=== PATIENT | male | born 1960 | race Caucasian/White ===

== ENCOUNTER 2019-09-02 10:42 | Emergency (ER) | payer OTHER, SELFPAY ==
--- NOTE | ~2019-09-02 | XR_ITS ---
EXAMINATION: XR toe 5th RT min 2V INDICATION: Right fifth toe pain, initial encounter TECHNIQUE: Four views of the right fifth toe are obtained. COMPARISON: None available FINDINGS: There is an acute, traumatic, closed, oblique shaft fracture of the fifth proximal phalanx. The fracture does not appear to extend to the articular surfaces. Soft tissue swelling surrounds the fracture. No additional acute osseous findings are evident. IMPRESSION: 1. Acute shaft fracture of the fifth proximal phalanx. Reviewed, dictated and finalized at location A.
[2019-09-02 11:25] VITALS: BP 128/82; PULSE 73; RESP 20; TEMP 37.2; O2SAT 98
--- NOTE | 2019-09-02 12:03 | ED.LOWEXIN ---
HPI - Extremity Injury (Lower) General Chief Complaint: Extremity Injury, Lower <RALPH Cabezas Last Filed: 09/02/19 12:52> Stated Complaint: broken toe <RALPH Cabezas Last Filed: 09/02/19 12:52> Time Seen by Provider: 09/02/19 11:07 <RALPH Cabezas Last Filed: 09/02/19 12:52> Source: patient <RALPH Cabezas Last Filed: 09/02/19 12:52> Mode of arrival: ambulatory <RALPH Cabezas Last Filed: 09/02/19 12:52> Limitations: no limitations <RALPH Cabezas Last Filed: 09/02/19 12:52> History of Present Illness HPI Narrative: This is a 59-year-old male that presents the emergency department for right fifth toe injury sustained just prior to arrival. Reports he got the toe caught on a door jam. Reports since he has had pain and decreased range of motion in the toe. Denies numbness. <RALPH Cabezas Last Filed: 09/02/19 12:52> Related Data Home Medications: Home Medications Medication Instructions Recorded Confirmed albuterol sulfate [Ventolin HFA] INHALATION 09/02/19 hydrocodone-acetaminophen tablet 09/02/19 ipratropium-albuterol ml INHALATION 09/02/19 metoprolol succinate PO 09/02/19 <RALPH Cabezas Last Filed: 09/02/19 12:52> Allergies/Adverse Reactions: Allergies Allergy/AdvReac Type Severity Reaction Status Date / Time Penicillins Allergy Mild Anaphylaxis Verified 09/02/19 11:33 venom-honey bee Allergy Unknown Anaphylactic Verified 09/02/19 11:33 Shock <RALPH Cabezas Last Filed: 09/02/19 12:52> Review of Systems Review of Systems: Narrative: CONSTITUTIONAL: Denies fever MUSCULOSKELETAL: Reports joint pain, and myalgia. NEUROLOGIC: Denies numbness <RALPH Cabezas Last Filed: 09/02/19 12:52> All systems reviewed & are unremarkable except as noted in HPI and below <Sisi Hendrickson PA-C - Last Filed: 09/02/19 12:52> PMFSH Past Medical History Medical History: Medical History (Updated 09/02/19 @ 12:51 by Sisi Hendrickson PA-C) History of COPD History of hypertension <Sisi Hendrickson PA-C - Last Filed: 09/02/19 12:52> Exam Narrative: Exam Narrative: GENERAL: Well-appearing, well-nourished, and in no acute distress. HEAD: Normocephalic, atraumatic. EYES: EOMI. EXTREMITIES: No edema. Normal DP pulses. Normal sensation. Right 5th toe tender to palpation with decreased ROM SKIN: Warm, dry, no rash. NEURO: No focal deficits. Alert and oriented x3. PSYCH: Normal mood and affect <Sisi Hendrickson PA-C - Last Filed: 09/02/19 12:52> Course Vital Signs Vital signs: Vital Signs Temperature 99.0 F 09/02/19 11:25 Pulse Rate 73 09/02/19 11:25 Respiratory Rate 20 09/02/19 11:25 Blood Pressure 128/82 09/02/19 11:25 Pulse Oximetry 98 09/02/19 11:25 Temperature 99.0 F 09/02/19 11:25 Pulse Rate 64 09/02/19 13:55 Respiratory Rate 17 09/02/19 13:55 Blood Pressure 152/79 H 09/02/19 13:55 Pulse Oximetry 99 09/02/19 13:55 <Sisi Hendrickson PA-C - Last Filed: 09/02/19 12:52> Vital Signs Temperature 99.0 F 09/02/19 11:25 Pulse Rate 73 09/02/19 11:25 Respiratory Rate 20 09/02/19 11:25 Blood Pressure 128/82 09/02/19 11:25 Pulse Oximetry 98 09/02/19 11:25 Temperature 99.0 F 09/02/19 11:25 Pulse Rate 64 09/02/19 13:55 Respiratory Rate 17 09/02/19 13:55 Blood Pressure 152/79 H 09/02/19 13:55 Pulse Oximetry 99 09/02/19 13:55 <Elisabet Rucker MD - Last Filed: 09/02/19 16:33> MDM - Extremity Injury (Lower) MDM Narrative Medical decision making narrative: Patient presents the emergency department for right fifth toe injury sustained just prior to arrival. Right fifth toe x-ray shows an acute shaft fracture of the fifth proximal phalanx. Patient konrad taped and given postop shoe. Instructed on care of toe fracture. Is to follow-up with primary care doctor. Was given
[2019-09-02 13:55] VITALS: BP 152/79; PULSE 64; RESP 17; O2SAT 99
== END 2019-09-02 13:57 | disposition home or self-care (01) ==
PROVIDERS: Emergency Provider General Practice; PCP Physician Assistant
DX: S92.511A Displaced fracture of proximal phalanx of right lesser toe(s), initial encounter for closed fracture (principal); J44.9 Chronic obstructive pulmonary disease, unspecified; I10 Essential (primary) hypertension; W22.8XXA Striking against or struck by other objects, initial encounter
CPT/HCPCS: 73660; 99284; A9270

== ENCOUNTER 2020-01-16 12:36 | Outpatient (CLI) | payer OTHER, SELFPAY ==
[2020-01-16 13:57] LABS: Alanine Aminotransferase 61 U/L (4-50); Albumin Level 3.7 g/dL (3.5-5.1); Alkaline Phosphatase 74 U/L (38-126); Anion Gap 3 mmol/L (8-16); Aspartate Amino Transferase 46 U/L (17-59); Bilirubin,Total 0.3 mg/dL (0.2-1.3); Blood Urea Nitrogen 11 mg/dL (9-20); Calcium 8.9 mg/dL (8.4-10.2); Carbon Dioxide 31 mmol/L (22-30); Chloride 108 mmol/L (98-107); Cholesterol 156 mg/dL (0-200); Estimated Glomerular Filt Rate > 60; Glucose 110 mg/dL (75-110); HDL Direct 28 mg/dL; Potassium 4.5 mmol/L (3.4-5.0); Sodium 142 mmol/L (137-145); Triglycerides 119 mg/dL (<150)
[2020-01-16 14:08] LABS: LDL Cholesterol Direct 112 mg/dL
== END 2020-01-16 12:37 | disposition home or self-care (01) ==
PROVIDERS: PCP Physician Assistant; Visit Provider Physician Assistant
DX: Z13.220 Encounter for screening for lipoid disorders (principal); I10 Essential (primary) hypertension
CPT/HCPCS: 36415; 80053; 80061

== ENCOUNTER 2020-03-07 07:45 | Outpatient (CLI) | payer OTHER, SELFPAY ==
[2020-03-07 08:18] LABS: Basophils Absolute Auto 0.1 K/mm3 (0.0-0.1); Basophils Percent Auto 0.9 % (0.2-1.2); Eosinophils Absolute Auto 0.2 K/mm3 (0-0.3); Eosinophils Percent Auto 2.3 % (0-4.4); Hematocrit 45.2 % (42.0-52.0); Hemoglobin 15.5 g/dL (14.0-18.0); Immature Granulocyte Absolute 0.05 K/mm3 (0.00-0.031); Immature Granulocyte Percent A 0.8 % (0-0.5); Lymphocytes Absolute Auto 1.95 K/mm3 (0.9-3.2); Lymphocytes Percent Auto 29.9 % (18.3-44.2); Mean Corpuscular HGB Conc 34.3 g/dl (32-36); Mean Corpuscular Hemoglobin 32.7 pg (26-34); Mean Corpuscular Volume 95.4 fl (80-100); Mean Platelet Volume 9.8 fl (7.4-10.4); Monocytes Absolute Auto 0.5 K/mm3 (0.1-0.6); Monocytes Percent Auto 7.8 % (2.6-8.5); Neutrophils Absolute Auto 3.8 K/mm3 (1.3-6.7); Neutrophils Percent Auto 58.3 % (45.5-73.1); Platelet Count Result 195 k/mm3 (150-375); Red Blood Count 4.74 M/mm3 (4.6-6.20); Red Cell Distribution Width 12.3 % (11.5-14.5); White Blood Count 6.5 K/mm3 (4.5-10.0)
[2020-03-07 08:28] LABS: Alanine Aminotransferase 13 U/L (4-50); Albumin Level 3.9 g/dL (3.5-5.1); Alkaline Phosphatase 52 U/L (38-126); Anion Gap 2 mmol/L (8-16); Aspartate Amino Transferase 21 U/L (17-59); Bilirubin,Total 0.6 mg/dL (0.2-1.3); Blood Urea Nitrogen 11 mg/dL (9-20); Calcium 8.8 mg/dL (8.4-10.2); Carbon Dioxide 31 mmol/L (22-30); Chloride 108 mmol/L (98-107); Estimated Glomerular Filt Rate > 60; Glucose 104 mg/dL (75-110); Potassium 4.1 mmol/L (3.4-5.0); Sodium 141 mmol/L (137-145)
[2020-03-09 18:11] LABS: Hepatitis C RNA, Quant PCR <15 IU/mL
== END 2020-03-07 07:46 | disposition home or self-care (01) ==
PROVIDERS: Family Provider Hospitalist; PCP Physician Assistant
DX: B18.2 Chronic viral hepatitis C (principal)
CPT/HCPCS: 36415; 80053; 85025; 87522

== ENCOUNTER 2020-04-05 10:27 | Outpatient (RCR) | payer OTHER, SELFPAY ==
[2020-04-05 10:48] LABS: Basophils Absolute Auto 0.1 K/mm3 (0.0-0.1); Basophils Percent Auto 0.8 % (0.2-1.2); Eosinophils Absolute Auto 0.2 K/mm3 (0-0.3); Eosinophils Percent Auto 2.7 % (0-4.4); Hematocrit 44.3 % (42.0-52.0); Hemoglobin 15.4 g/dL (14.0-18.0); Immature Granulocyte Absolute 0.01 K/mm3 (0.00-0.031); Immature Granulocyte Percent A 0.2 % (0-0.5); Lymphocytes Percent Auto 35.6 % (18.3-44.2); Mean Corpuscular HGB Conc 34.8 g/dl (32-36); Mean Corpuscular Hemoglobin 32.8 pg (26-34); Mean Corpuscular Volume 94.3 fl (80-100); Mean Platelet Volume 9.6 fl (7.4-10.4); Monocytes Absolute Auto 0.6 K/mm3 (0.1-0.6); Monocytes Percent Auto 9.3 % (2.6-8.5); Neutrophils Percent Auto 51.4 % (45.5-73.1); Platelet Count Result 196 k/mm3 (150-375); Red Cell Distribution Width 11.9 % (11.5-14.5); White Blood Count 5.9 K/mm3 (4.5-10.0)
[2020-04-05 10:58] LABS: Alanine Aminotransferase 12 U/L (4-50); Albumin Level 3.9 g/dL (3.5-5.1); Alkaline Phosphatase 48 U/L (38-126); Anion Gap 2 mmol/L (8-16); Aspartate Amino Transferase 20 U/L (17-59); Bilirubin,Total 0.5 mg/dL (0.2-1.3); Blood Urea Nitrogen 11 mg/dL (9-20); Calcium 9.1 mg/dL (8.4-10.2); Carbon Dioxide 32 mmol/L (22-30); Chloride 107 mmol/L (98-107); Estimated Glomerular Filt Rate > 60; Glucose 92 mg/dL (75-110); Potassium 4.1 mmol/L (3.4-5.0); Sodium 141 mmol/L (137-145)
== END 2020-07-04 23:59 | disposition home or self-care (01) ==
LOC: ANHLAB 10:27
PROVIDERS: PCP Physician Assistant
DX: B18.2 Chronic viral hepatitis C (principal)
CPT/HCPCS: 36415; 80053; 85025; 87522

== ENCOUNTER 2021-06-19 08:44 | Outpatient (CLI) | payer OTHER, SELFPAY ==
--- NOTE | ~2021-06-19 | CT_ITS ---
EXAMINATION: CT abdomen w con INDICATION: Right lower quadrant abdominal swelling and mass TECHNIQUE: Computed tomographic images of the abdomen were obtained after the administration of 100 c c of Omnipaque 300 intravenous contrast. The dose-length product (DLP) was 345.10 mGy-cm. Automated e xposure control and iterative reconstruction technique were employed. COMPARISON: 07/29/2017 FINDINGS: Minimal dependent atelectasis is present in the lung bases. The heart size is normal. There appears to be mild surface nodularity of the liver. The spleen, pancreas, gallbladder, and adrenal g lands are normal. The kidneys are unremarkable. There are no pathologically enlarged abdominal lymph nodes. Calcified atherosclerosis is noted. The appendix is normal. A moderate volume of colonic stool is present. There is no free intraperitoneal gas or evidence of bowel obstruction. IMPRESSION: 1. No CT correlate for the patient's symptoms. 2. Mild nodularity of the liver surface, consistent with cirrhosis. Reviewed, dictated and finalized at location B.
[2021-06-19 09:12] LABS: Estimated Glomerular Filt Rate > 60
== END 2021-06-19 08:45 | disposition home or self-care (01) ==
LOC: ANHIMG 08:46
PROVIDERS: PCP Physician Assistant; Visit Provider Physician Assistant
DX: R19.03 Right lower quadrant abdominal swelling, mass and lump (principal); R93.2 Abnormal findings on diagnostic imaging of liver and biliary tract
CPT/HCPCS: 74160; Q9967

== ENCOUNTER 2021-08-31 00:35 | Day surgery (SDC) | payer OTHER, SELFPAY ==
[2021-08-28 11:41] VITALS: BMI 27.2
--- NOTE | 2021-08-28 11:48 | PC.NURSE ---
Report to the Outpatient Waiting Room, entrance under the green pavilion located off [facility], at time 0700 on date 08/31/21. OR Time: 0900. - You and your visitor will be asked a series of questions to screen for COVID 19 for your protection. - Only one visitor is allowed at this time. - The patient visitor is requested to leave or wait in car when not with patient. - A mask is required within the hospital. Patients may have clear liquids (water, carbonated beverages, clear teas, apple juice) until 3 hours prior to surgery with a maximum of 20 ounces. - No food from midnight until time of surgery Take the following medications with a SIP of water the morning of surgery: INHALERS, METOPROLOL, PAIN PILL (IF NEEDED) Medications to discontinue per physician: N/A Date to take last dose: N/A Please no make-up, nail tajik, hairspray, perfume, deodorant, or body powder the day of surgery. No jewelry (including any body piercings) or valuables the day of surgery, leave them at home. Please take a shower or bath the night before, or the morning of, surgery with an antibacterial soap. Wear comfortable, loose fitting clothing. - Jewelry must be removed prior to entering the operating room. Rings and piercings that are not removed may be cut off. - The hospital will not accept responsibility for valuables. - Please leave all valuables, including medications, at home the day of surgery. If you are going home after surgery, a licensed logging truck driver must drive you home. - NO public transportation without another adult. - We recommend that an adult stay with you for 24 hours following discharge. - We also recommend that you do not drive, make important decision, drink alcoholic beverages, or take any drugs that were not prescribed by your health care provider for at least 24 hours after your discharge time. Follow any additional instructions given to you from your surgeon. If you or anyone in your household have experienced Covid symptoms in the past week, please notify your surgeon or the nurse liaison at the phone number below for possible testing. Telephone instructions given to PT - ARETHA COTTON and asked if any additional questions and then verbalized understanding. Patient advised to call surgeon office or pre surgery nurse liaison [phone] if any additional questions.
[2021-08-31 07:08] VITALS: BP 137/70; PULSE 57; RESP 16; TEMP 36.5; O2SAT 100
--- NOTE | 2021-08-31 07:52 | WPDANESEPPF ---
Anes - Initial Pre Proc Eval Procedure: Operation Date: 08/31/21 09:00 Proposed Procedures p Excision Abdominal Wall Mass - Warren Joe DO Date/Time: 08/31/21 07:52 Surgeon: Warren Joe DO Pre Op Diagnosis: 2 cm abdominal wall mass Patient Data Age: 61 Gender: M Height: 1.71 m Weight: 80 kg Allergies Allergy/AdvReac Type Severity Reaction Status Date / Time Penicillins Allergy Severe Anaphylaxis Verified 08/31/21 07:37 venom-honey bee Allergy Severe Anaphylactic Verified 08/31/21 07:37 Shock Home Medications Medication Instructions Recorded Confirmed Type albuterol sulfate 90 mcg/actuation 1 inh inhalation DAILY PRN 09/02/19 08/31/21 History aerosol inhaler (Ventolin HFA) Bronchospasm hydrocodone 10 mg-acetaminophen 1 tablet PO Q6H PRN Pain 09/02/19 08/31/21 History 325 mg tablet ipratropium 0.5 mg-albuterol 3 mg 3 ml inhalation DAILY 09/02/19 08/31/21 History (2.5 mg base)/3 mL nebulization soln metoprolol succinate 100 mg 100 mg PO DAILY 09/02/19 08/31/21 History tablet,extended release 24 hr Patient hx anesthesia problems: none Family hx anesthesia problems: none Results Review: All pre-operative results and documents have been reviewed as part of the pre-operative evaluation. [facility] Past Medical History Medical History Chronic pain syndrome Cirrhosis History of COPD History of hypertension Social History Social History Smoking packs per day: 2 Smoking cigarettes per day: 40.0 Years smoked: 40 Smoking pack-years: 80.00 Smoking status: Current every day smoker Tobacco type: cigarettes Alcohol intake: never Substance use: never Substance use type: does not use Living arrangements: with family Spiritual care concerns: No Anes - Eval Final PreProcedure Day of Procedure 08/31/21 07:52 Patient weight: overweight Heart: regular rate and rhythm Lungs: decreased breath sounds Airway: Mallampati scale class II Neurological: other (alert) Last oral intake: >/= 8 hours ASA classification: III Emergent: no Anesthetic plan: proceed Anesthesia type and monitoring: general GIVS Results Review: All pre-operative results and documents have been reviewed as part of the pre-operative evaluation. Informed Consent: The patient's anesthetic plan and its attendant risks and benefits were discussed with the patient/family/POA. Questions were solicited and answers provided to the satisfaction of the patient/family/POA.
[2021-08-31] MEDS: LACTATED RINGERS 1,000 ML 30 ML IV CONT (07:53)
[2021-08-31 08:14] LABS: Prothrombin Time 13.1 Seconds (11.1-14.7)
--- NOTE | 2021-08-31 08:59 | PM.IMHP ---
H&P: HPI History of Present Illness Date/Time: 08/31/21 08:59 Chief Complaint: Abdominal wall mass Narrative: 61 yo man presents for excision of abdominal wall mass. He reports no changes since last seen in office. Review of Systems Review of Systems: All systems reviewed & are unremarkable except as noted in HPI and below Constitutional: Constitutional: Denies chills, Denies fever(s), Denies headache(s) and Denies weight loss Eyes: Eyes: Denies change in vision ENT: Denies dizziness, Denies headache(s), Denies neck mass and Denies throat swelling Cardiovascular: Cardiovascular: Denies chest pain, Denies lightheadedness and Denies dyspnea Respiratory: Respiratory: Denies cough, Denies dyspnea and Denies wheezing Gastrointestinal: Gastrointestinal: Denies abdominal pain, Denies change in bowel habits, Denies nausea and Denies vomiting Genitourinary: Genitourinary: Denies hematuria and Denies dysuria Musculoskeletal: Musculoskeletal: Reports as per HPI Integumentary/Breasts: Skin/Breast: Reports as per HPI Neurologic: Denies dizziness and Denies headache(s) Allergic/Immunologic: Allergic/Immunologic: Denies throat swelling and Denies wheezing [facility] Past Medical History Medical History Chronic pain syndrome Cirrhosis History of COPD History of hypertension Social History Social History Smoking packs per day: 2 Smoking cigarettes per day: 40.0 Years smoked: 40 Smoking pack-years: 80.00 Smoking status: Current every day smoker Tobacco type: cigarettes Alcohol intake: never Substance use: never Substance use type: does not use Living arrangements: with family Spiritual care concerns: No Meds Home Medications and Allergies Home Medications Medication Instructions Recorded Confirmed Type albuterol sulfate 90 mcg/actuation 1 inh inhalation DAILY PRN 09/02/19 08/31/21 History aerosol inhaler (Ventolin HFA) Bronchospasm hydrocodone 10 mg-acetaminophen 1 tablet PO Q6H PRN Pain 09/02/19 08/31/21 History 325 mg tablet ipratropium 0.5 mg-albuterol 3 mg 3 ml inhalation DAILY 09/02/19 08/31/21 History (2.5 mg base)/3 mL nebulization soln metoprolol succinate 100 mg 100 mg PO DAILY 09/02/19 08/31/21 History tablet,extended release 24 hr Allergies Allergy/AdvReac Type Severity Reaction Status Date / Time Penicillins Allergy Severe Anaphylaxis Verified 08/31/21 07:37 venom-honey bee Allergy Severe Anaphylactic Verified 08/31/21 07:37 Shock Vital Signs Vital Signs - 24 hr 08/31/21 07:08 Temperature 36.5 C Pulse Rate 57 L Respiratory Rate 16 Blood Pressure 137/70 Pulse Oximetry 100 Oxygen Delivery Room Air Exam Const: General: no acute distress and alert Orientation/consciousness: patient oriented x3 HENMT: Head: normocephalic and atraumatic Ears: hearing grossly normal bilaterally General nose exam: Normal nares present Mouth: Yes Normal oral and palatal mucosa present Eyes: Periorbital: periorbital findings normal Sclera: sclerae normal EOM: EOMs intact bilaterally Neck: Neck: normal visual inspection, no lymphadenopathy and trachea midline Chest: Chest palpation & inspection: normal inspection of the chest Resp: Effort & Inspection: normal respiratory effort Auscultation: clear to auscultation bilaterally Cardio: Jugular venous distension: no JVD Rate: regular rate Rhythm: regular rhythm Heart sounds: S1 normal heart sound present and S2 normal heart sound present Peripheral pulses: Peripheral pulses 2+ throughout GI: Inspection: normal to inspection GI Palp: Yes Soft to palpation, No Tenderness to palpation present (GI), No Guarding due to palpation present (GI) and No Rebound tenderness present Percussion: Yes normal to percussion Auscultation: normal bowel sounds Other: 2 cm abdominal wall mass just to the
--- NOTE | 2021-08-31 09:02 | WPDHPUPDATE1 ---
History and Physical Update Update Date/Time: 08/31/21 09:02 History and Physical has been reviewed, including an updated exam of the patient. There are NO changes in the patient's condition. Risks, benefits, and alternatives have been discussed and questions answered. Patient agrees to proceed with procedure.
[2021-08-31] MEDS: ceFAZolin 2 GM/D5W 50 ML 2 GM/50 ML BAG IVPB (09:09)
[2021-08-31] MEDS: LIDO 1%/EPINEPHRINE 1:100,000 10 ML VIAL 30 ML INFILTRATE (09:25)
--- NOTE | 2021-08-31 09:36 | W.PM.PROC2 ---
Procedure Note - Detailed Date of Procedure 08/31/21 Pre-op Diagnosis 2 cm abdominal wall mass Post-op Diagnosis Same Procedure Performed 1. Excision of 2 cm abdominal wall mass 2. Layered closure Surgeon Warren Joe, DO Anesthesia MAC and Local (1% lidocaine with epinephrine) Indications This is a 61-year-old man who presented with an abdominal wall mass that he had noticed over the last several months. It started out as very small size but has increased in size gradually. He had a CT of his abdomen performed which showed no evidence of a mass within this region. He had a 2 cm firm palpable mass within the subcutaneous region just to the right of his umbilicus on exam. Discussions were made with the patient about treatment options and decision was made to proceed with excision the 2 cm abdominal mass. Findings Excision of 2 cm abdominal wall mass was performed. The patient was found have a firm 2 cm mass within the subcutaneous space just to the right of his umbilicus. This appeared to be fibrous tissue but could also be possible lymph node. The mass was completely excised intact and was sent to the lab for pathology. A layered closure was performed using 3-0 Vicryl simple interrupted sutures in Latonia's fascia followed by 4-0 Monocryl running subcuticular suture. Description of Procedure Procedure as well as risks, benefits, and alternatives were discussed with the patient. Written consent was obtained and placed in chart prior to procedure. Patient was brought back to surgical suite. He was placed supine on operating table. Time-out was done to confirm patient and procedure. IV sedation was then administered by the anesthesia department. His abdominal region was prepped and draped in sterile fashion using chlorhexidine prep. 1% lidocaine with epinephrine was infiltrated locally around the mass. A 2 cm transverse incision was made directly over the mass using a 15 blade scalpel. Electrocautery was used for hemostasis and for dissection around the mass. The subcutaneous attachments were carefully dissected free using electrocautery and the mass was completely excised and sent to the lab for pathology. The wound bed was then inspected. Hemostasis appeared adequate. No other masses or abnormalities were noted. Latonia's fascia was reapproximated using 3-0 Vicryl simple interrupted sutures. The skin was then approximated using 4-0 Monocryl running subcuticular suture. Exofin glue was then applied on top. The patient was then awakened from anesthesia and transferred to recovery. Estimated Blood Loss 5 Pathology Yes (2 cm abdominal mass) Complications No immediate complications Condition Stable Disposition Same day [facility] Billing Surgery - Charge Forward: Surgery Billing
[2021-08-31 09:41] VITALS: BP 132/81; PULSE 69; RESP 14; O2SAT 96
[2021-08-31 10:10] VITALS: BP 157/83; PULSE 66; RESP 14; O2SAT 94
== END 2021-08-31 10:36 | disposition home or self-care (01) ==
PROVIDERS: PCP Physician Assistant; Visit Provider Surgery
PROC: (CPT 22902; principal; 2021-08-31 09:00)
DX: M79.89 Other specified soft tissue disorders (principal); G89.4 Chronic pain syndrome; I10 Essential (primary) hypertension; J44.9 Chronic obstructive pulmonary disease, unspecified; F17.210 Nicotine dependence, cigarettes, uncomplicated; Z79.51 Long term (current) use of inhaled steroids; Z79.891 Long term (current) use of opiate analgesic
CPT/HCPCS: 22902; 36415; 85610; 88304; A9270; J0690; J2250; J2704; J3010; J7120

== ENCOUNTER 2022-01-18 07:21 | Outpatient (CLI) | payer OTHER, MEDICAID, SELFPAY ==
[2022-01-18 08:54] LABS: Potassium 4.1 mmol/L (3.4-5.0)
[2022-01-18 09:02] LABS: Alanine Aminotransferase 11 U/L (6-50); Albumin Level 4.2 g/dL (3.5-5.1); Alkaline Phosphatase 53 U/L (38-126); Anion Gap 4 mmol/L (8-16); Aspartate Amino Transferase 18 U/L (17-59); Bilirubin,Total 0.5 mg/dL (0.2-1.3); Blood Urea Nitrogen 14 mg/dL (9-20); Calcium 8.4 mg/dL (8.4-10.2); Carbon Dioxide 30 mmol/L (22-30); Chloride 103 mmol/L (98-107); Cholesterol 165 mg/dL (0-200); Estimated Glomerular Filt Rate > 60; Glucose 108 mg/dL (65-110); HDL Direct 31 mg/dL; Sodium 137 mmol/L (137-145); Triglycerides 129 mg/dL (<150)
[2022-01-18 09:05] LABS: LDL Cholesterol Direct 105 mg/dL
[2022-01-21 21:34] LABS: PSA, Free 0.18 ng/mL; PSA, Total 0.4 ng/mL (<=4.0)
== END 2022-01-18 07:22 | disposition home or self-care (01) ==
PROVIDERS: PCP Physician Assistant; Visit Provider Physician Assistant
DX: I25.2 Old myocardial infarction (principal); I10 Essential (primary) hypertension; Z12.5 Encounter for screening for malignant neoplasm of prostate
CPT/HCPCS: 36415; 80053; 80061; 84153; 84154

== ENCOUNTER 2022-12-16 13:32 | Emergency (ER) | payer OTHER, SELFPAY ==
[2022-12-16 14:05] VITALS: BP 149/86; PULSE 89; RESP 18; TEMP 37.3; O2SAT 96
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
== END 2022-12-16 14:52 | disposition home or self-care (01) ==
PROVIDERS: Emergency Provider Registered Nurse; PCP Family Medicine
DX: S01.25XA Open bite of nose, initial encounter (principal); S61.251A Open bite of left index finger without damage to nail, initial encounter; J44.9 Chronic obstructive pulmonary disease, unspecified; I25.2 Old myocardial infarction; I10 Essential (primary) hypertension; F17.210 Nicotine dependence, cigarettes, uncomplicated; Z86.73 Personal history of transient ischemic attack (TIA), and cerebral infarction without residual deficits; W54.0XXA Bitten by dog, initial encounter
CPT/HCPCS: 99213; G0463

== ENCOUNTER 2023-02-10 10:59 | Outpatient (CLI) | payer OTHER, SELFPAY ==
[2023-02-10 11:30] LABS: Alanine Aminotransferase 16 U/L (6-50); Albumin Level 4.2 g/dL (3.5-5.1); Alkaline Phosphatase 78 U/L (38-126); Anion Gap 8 mmol/L (8-16); Aspartate Amino Transferase 21 U/L (17-59); Bilirubin,Total 0.5 mg/dL (0.2-1.3); Blood Urea Nitrogen 14 mg/dL (9-20); Calcium 9.4 mg/dL (8.4-10.2); Carbon Dioxide 29 mmol/L (22-30); Chloride 104 mmol/L (98-107); Cholesterol 109 mg/dL (0-200); Estimated Glomerular Filt Rate > 60; Glucose 134 mg/dL (65-110); HDL Direct 32 mg/dL; Potassium 4.6 mmol/L (3.4-5.0); Sodium 141 mmol/L (137-145); Triglycerides 82 mg/dL (<150)
[2023-02-10 11:42] LABS: LDL Cholesterol Direct 58 mg/dL
[2023-02-10 13:43] LABS: Hemoglobin A1C 5.7 % (<5.7)
== END 2023-02-10 11:00 | disposition home or self-care (01) ==
PROVIDERS: PCP Family Medicine; Visit Provider Family Medicine
DX: R73.09 Other abnormal glucose (principal); E78.00 Pure hypercholesterolemia, unspecified; I10 Essential (primary) hypertension; Z86.73 Personal history of transient ischemic attack (TIA), and cerebral infarction without residual deficits
CPT/HCPCS: 36415; 80053; 80061; 83036

== ENCOUNTER 2023-11-24 19:29 | Emergency (ER) | payer MEDICARE, MEDICAID, SELFPAY ==
[2023-11-24 19:34] VITALS: BP 168/88; PULSE 94; RESP 16; TEMP 36.8; O2SAT 99
[2023-11-24 20:04] VITALS: BP 174/78; PULSE 94; RESP 18; TEMP 36.6; O2SAT 98
--- NOTE | 2023-11-24 20:06 | ED.BACK ---
HPI - Back Pain/Injury General Chief Complaint: Back Pain/Injury Stated Complaint: lower back pain Time Seen by Provider: 11/24/23 19:55 History of Present Illness HPI Narrative: 63-year-old male with a past medical history including chronic lower back pain for last 15 years. He states he has significant osteoarthritis and sciatica. States that he has ran out of his [place] medication at home is requesting a refill. Patient states that his back pain has been acting up over last 7 days but denies any new trauma or injuries. He takes [place] 10 mg several times a day and has had many refills by his primary care provider who recently moved and he has not been able to establish care until December 21 when his next appointment is scheduled. He states his care is usually at [facility]. He does have a history of CVA and hypertension. Endorses pain going down the back of his left side lower back shooting down his left thigh and into his calf describes as a burning sensation. Denies any weakness, numbness normally ambulates with a walker. No saddle anesthesias, urinary incontinence, defecation incontinence. No fever, chills, illnesses recently. He patient states he was otherwise in his normal state of health with no recent hospital visits or illnesses, injuries. Related Data Allergies Allergy/AdvReac Type Severity Reaction Status Date / Time Penicillins Allergy Severe Anaphylaxis Verified 10/07/23 10:06 venom-honey bee Allergy Severe Anaphylactic Verified 10/07/23 10:06 Shock Review of Systems Review of Systems: As reviewed above [facility] Past Medical History Medical History Cirrhosis COPD (chronic obstructive pulmonary disease) Degenerative disc disease, lumbar History of CVA (cerebrovascular accident) 09/06/2022 History of hepatitis C History of myocardial infarction History of seizure disorder Hypertension Major depressive disorder, recurrent, moderate Obstructive sleep apnea Osteoarthritis Pure hypercholesterolemia Tremor Surgical History Surgical History H/O excision of mass excision of 2cm abdominal wall mass on 08/31/21. History of carotid endarterectomy right 09/06/2022 left 01/2023 History of hemorrhoidectomy 1989 History of nasal septoplasty 08/05/2011 History of throat surgery polyp removal X3 2005 History of transcarotid artery revascularization (TCAR) 06/28/2023 Social History Social History Smoking packs per day: 2 Smoking cigarettes per day: 40.0 Years smoked: 40 Smoking pack-years: 80.00 Smoking status: Current every day smoker Tobacco type: cigarettes Alcohol intake: never Substance use: never Substance use type: does not use Do You Feel Safe in your Home?: Yes Lack of Transportation: No Lack of Food: Never True Current Housing: I Have Housing Concerned About Future Housing: No Difficulty Paying Gas/Electric Bills: No Difficulty Paying for Meds: No Currently Unemployed: No Education: High School Diploma/GED Difficulty w/ Childcare or Family Care: No Living arrangements: with family Occupation/Education: occupation Gender identity (if verbalized by the patient): Male Sexual Orientation (if Verbalized by the Patient): Straight or Heterosexual Spiritual care concerns: No Exam Narrative: GENERAL: Well appearing, no acute distress, tremulous in the bilateral upper lower extremities which is baseline for the patient according to him. HEAD: [Normocephalic, atraumatic.] EYES: [PERRLA and EOMI.] ENT: Nares clear, no rhinorrhea or epistaxis. Mucous membranes moist. NECK: Supple. CHEST: [Clear to auscultation. No respiratory distress.] HEART: [Regular rate and rhythm]. No murmur heard. 2+ peripheral extremities with warm legs ABDOMEN: [S
[2023-11-24] MEDS: LIDOCAINE 5% PATCH 1 PATCH TRANSDERM (20:14)
[2023-11-24] MEDS: predniSONE 20 MG TABLET 60 MG PO (20:15)
[2023-11-24] MEDS: HYDROcodone/acetaminophen (*CRX) 10-325 MG TABLET 1 TAB PO (20:16)
[2023-11-24] MEDS: methocarbamoL 500 MG TABLET PO (20:17)
== END 2023-11-24 20:35 | disposition home or self-care (01) ==
PROVIDERS: Emergency Provider Student in an Organized Health Care Education/Training Program; PCP Nurse Practitioner Family
DX: M54.42 Lumbago with sciatica, left side (principal); M54.16 Radiculopathy, lumbar region; S39.012A Strain of muscle, fascia and tendon of lower back, initial encounter; I10 Essential (primary) hypertension; I25.2 Old myocardial infarction; J44.9 Chronic obstructive pulmonary disease, unspecified; K74.60 Unspecified cirrhosis of liver; E78.00 Pure hypercholesterolemia, unspecified; G40.909 Epilepsy, unspecified, not intractable, without status epilepticus; G47.33 Obstructive sleep apnea (adult) (pediatric); M19.90 Unspecified osteoarthritis, unspecified site; F17.210 Nicotine dependence, cigarettes, uncomplicated; Z86.19 Personal history of other infectious and parasitic diseases; Z86.73 Personal history of transient ischemic attack (TIA), and cerebral infarction without residual deficits; Z79.82 Long term (current) use of aspirin; Z79.899 Other long term (current) drug therapy; X58.XXXA Exposure to other specified factors, initial encounter
CPT/HCPCS: 99283; A9270; J7512